=== PATIENT | male | born 1975 | race Caucasian/White ===

== ENCOUNTER 2017-01-05 21:53 | Emergency (ER) | payer MEDICAID ==
[~2017-01-05] VITALS: Ht 193 cm; Wt 90.7 kg
[~2017-01-05 21:53] MED LIST: CLON0.1T14 PO; DIPH25CA83 PO; DIVA500T2 PO
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
--- NOTE | 2017-01-05 22:30 | NUR ---
PINKY SPEAKING TO PT AT BEDSIDE
--- NOTE | 2017-01-05 23:31 | NUR ---
PT D/C IN STABLE CONDITION. WAS PROVIDED W/ REFERRALS AND HOMELESS SHELTERS.
[2017-01-05 23:32] VITALS: BP 128/77
== END 2017-01-05 23:33 | disposition home or self-care (01) ==
LOC: ER 21:54 → MERGE 21:54 → ER 23:33
DX: F32.9 Major depressive disorder, single episode, unspecified (principal)
CPT/HCPCS: 99284; A4606; Z7610